=== PATIENT | female | born 1950 | race African-American/Black ===

== ENCOUNTER 2023-07-19 13:46 | Emergency (ER) | payer MEDICARE, OTHER ==
[2023-07-19] MEDS ORDERED: predniSONE 20 MG TAB ONE ×2 (14:20→14:21)
[2023-07-19] MEDS ORDERED: Azithromycin 250 MG TAB ONE (14:20)
== END 2023-07-19 14:34 | disposition home or self-care (01) ==
LOC: NAV ERS 13:46
DX: J01.90 Acute sinusitis, unspecified (principal); J04.0 Acute laryngitis
CPT/HCPCS: 99283; J7512